=== PATIENT | female | born 1960 | race Caucasian/White ===

== ENCOUNTER 2017-08-05 11:50 | Emergency (ER) | payer MEDICAID ==
[~2017-08-05] VITALS: Ht 175.3 cm; Wt 65.9 kg
[2017-08-05] MEDS ORDERED: IBUPROFEN 800 MG TABLET PO ONE (14:30)
[2017-08-05 15:44] VITALS: BP 122/68
== END 2017-08-05 15:55 | disposition home or self-care (01) ==
LOC: EMS 11:52
DX: L03.116 Cellulitis of left lower limb (principal); L03.115 Cellulitis of right lower limb; I96 Gangrene, not elsewhere classified; F17.210 Nicotine dependence, cigarettes, uncomplicated
CPT/HCPCS: 99283